=== PATIENT | male | born 1950 | race Caucasian/White ===

== ENCOUNTER 2017-07-19 02:16 | Observation (INO) | payer OTHER, MEDICARE ==
--- NOTE | 2017-07-19 02:21 | EDPHY ---
H & P HPI/ROS: HPI CHIEF COMPLAINT: Left foot swelling, redness, pain, blister. HISTORY OF PRESENT ILLNESS: This patient otherwise healthy 66-year-old male no history of diabetes, immunocompetent, presents emergency room with left foot swelling pain and redness. Started Tuesday. He noticed pain and redness to the dorsum of his left foot. His progressed over the past weekend. No fever. The redness is streak up his foot. He has left great toe has become swollen and red. There is a blister to the medial aspect of the left great toe. He is unsure something bit him. He states started while he was gardening in a closed shoe. No history of cellulitis or MRSA. Past Medical History: No significant medical history Past Surgical History: No significant surgical history Social History: Denies daily use drugs alcohol tobacco products. Family History: Noncontributory ROS REVIEW OF SYSTEMS: A comprehensive 10 point review of systems is otherwise negative aside from elements mentioned in the history of present illness. Exam Constitutional triage nursing summary reviewed, vital signs reviewed, awake/ alert. Eyes normal conjunctivae and sclera, EOMI, PERRLA. HENT normal inspection, atraumatic, moist mucus membranes, no epistaxis, neck supple/ no meningismus, no raccoon eyes. Respiratory clear to auscultation bilaterally, normal breath sounds, no respiratory distress, no wheezing. Cardiovascular rate normal, regular rhythm, no murmur, no edema, distal pulses normal. Gastrointestinal soft, non-tender, no rebound, no guarding, normal bowel sounds, no distension, no pulsatile mass. Genitourinary no CVA tenderness. Musculoskeletal left foot: Good DP, redness and erythema yellow tinged drainage , blister left medial aspect great toe, great toe swollen, no crepitus, no gas, warmth. no midline vertebral tenderness, full range of motion, no calf swelling , no tenderness of extremities, no meningismus, good pulses, neurovascularly intact. Skin See left foot description above Neurologic awake, alert and oriented x 3, AAOx3, moves all 4 extremities equally, motor intact, sensory intact, CN II-XII intact, normal cerebellar, normal vision, normal speech. Psychiatric normal mood/affect. Heme/Lymph/Immune no lymphadenopathy. Differential Diagnosis: Includes but is not limited to in a particular order left foot cellulitis, left foot MRSA infection, strep infection Medical Decision Making: Plan for this patient IV establishment blood cultures , IV vancomycin, inflammatory markers, CBC electrolytes, check x-ray left foot for rule out gas. Most likely will need to be admitted given extent of cellulitis. Re-evaluation: Left foot x-ray visualized by myself. No foreign body visualized. No gas. No osteomyelitis change. Updated patient given the extent of cellulitis was foot I feel that this patient be benefit from hospitalization IV antibiotics. Feel that he would fail outpatient management. Patient agrees for admission tonight and today for IV antibiotics. IV vancomycin as been ordered in the emergency room. Blood cultures pending. Blood work has been reviewed elevated CRP. No systemic white count. Spoke with Dr. Harris who agrees to admit this patient. Source: Patient Constitutional: Initial Vital Signs Temperature (C) 37 C 07/19/17 02:18 Heart Rate 71 07/19/17 02:18 Respiratory Rate 18 07/19/17 02:18 Blood Pressure 159/98 H 07/19/17 02:18 O2 Sat (%) 95 07/19/17 02:18 O2 Delivery Mode Room Air Allergies/Adverse Reactions: Sulfa (Sulfonamide Antibiotics) Allergy (Verified 07/19/17 02:18) Home Medications: Medication Instructions Recorded Ibuprofen [Motrin (*)] 200 mg PO BID PRN 07/19/17 Medical Decision Making - Data Points Laboratory Results: Laboratory Results 07/19/17 02:50 07/19/17 02:50 Medications Given: Acetaminophen (Tylenol) 650 mg PO Q4HRS PRN PRN Reason: Pain, Mild/Fever, Can Take PO Stop: 01/15/18 03:51 Last Admin: 07/19/17 10:12 Dose: 650 mg Diphenhydramine HCl (Benadryl Cream) 1 sadia TP QID PRN PRN Reason: Itching Stop: 01/15/18 18:06 Last Admin: 07/19/17 19:13 Dose: 1 sadia Vancomycin HCl 1.5 gm/ (Dextrose) 250 mls @ 166.667 mls/hr IV Q12H SLY Stop: 08/18/17 14:59 Last Admin: 07/19/17 15:29 Dose: 250 mls Discontinued Medications Sodium Chloride (Ns) 1,000 mls @ 0 mls/hr IV EDNOW ONE; Wide Open PRN Reason: Protocol Stop: 07/19/17 02:43 Last Admin: 07/19/17 03:13 Dose: 1,000 mls Vancomycin/Sodium Chloride (Vancomycin 1 Gm (Premix)) 250 mls @ 250 mls/hr IV EDNOW ONE PRN Reason: Protocol Stop: 07/19/17 03:42 Last Admin: 07/19/17 03:14 Dose: 250 mls Departure - Departure Disposition: [facility] Acute Clinical Impression: Cellulitis of left foot Condition: Fair
[2017-07-19] MEDS ORDERED: NS 1,000 ML IV ONE (02:42)
[2017-07-19] MEDS ORDERED: VANCOMYCIN HCL/NORMAL SALINE 250 ML IV ONE (02:43)
[2017-07-19 03:03] LABS: % IMMATURE GRANULYOCYTES 0.3 % (0.0-1.1); ABSOLUTE IMMATURE GRANULOCYTES 0.02 10^3/uL (0.00-0.10); ADD DIFF? NO; ADD MORPH? NO; ADD SCAN? NO; ATYPICAL LYMPHOCYTE FLAG 10 (0-99); FRAGMENT RBC FLAG 0 (0-99); HEMOGLOBIN 14.9 g/dL (13.7-17.5); LEFT SHIFT FLG 0 (0-99); LIPEMIA HEMOLYSIS FLAG 90 (0-99); MEAN CELL HEMOGLOBIN 33.1 pg (27.9-34.1); MEAN CELL HEMOGLOBIN CONCENTR. 33.9 g/dL (32.4-36.7); MEAN CELL VOLUME 97.8 fL (81.5-99.8); MEAN PLATELET VOLUME 10.9 fL (8.7-11.7); PLATELET CLUMPS FLAG 10 (0-99); PLATELET COUNT 192 10^3/uL (150-400); RED CELL DISTRIBUTION WIDTH 13.3 % (11.5-15.2)
[2017-07-19 03:13] LABS: INR 0.95 (0.83-1.16); PROTIME(PATIENT) 12.6 SEC (12.0-15.0)
[2017-07-19 03:14] LABS: APTT 30.8 SEC (23.0-38.0)
[2017-07-19 03:31] LABS: ANION GAP 14 mEq/L (8-16); C-REACTIVE PROTEIN 16.2 mg/L (<10.0); CALCIUM 10.1 mg/dL (8.5-10.4); CARBON DIOXIDE 23 mEq/l (22-31); CHLORIDE 105 mEq/L (97-110); CREATININE 0.8 mg/dL (0.7-1.3); GLOMERULAR FILTRATION RATE > 60; GLUCOSE 98 mg/dL (70-100); SODIUM 142 mEq/L (134-144)
[2017-07-19 03:39] LABS: SEDIMENTATION RATE 11 MM/HR (0-20)
[2017-07-19] MEDS ORDERED: ONDANSETRON 4 MG/2 ML VIAL IVP PRN (03:52)
[2017-07-19] MEDS ORDERED: oxyCODONE IR 5 MG TAB PO PRN (03:52)
[2017-07-19] MEDS ORDERED: ONDANSETRON DISINTEGRATING 4 MG TAB PO PRN (03:52)
--- NOTE | 2017-07-19 03:58 | PDGENHP ---
History and Physical - Chief Complaint Foot redness - History of Present Illness 66 yo M w/ no PMHx presents with foot redness. He noticed a spire bite 3 days prior to presentation. Over the course of the last 48 he experienced progressive L foot redness, swelling, and warmth. He denies fever, chills, history of diabetes, or prior infections. History Information - Allergies/Home Medication List Allergies/Adverse Reactions: Sulfa (Sulfonamide Antibiotics) Allergy (Verified 07/19/17 02:18) Home Medications: NK [No Known Home Meds] 07/19/17 [Last Taken Unknown] I have personally reviewed and updated: family history, medical history - Past Medical History no pertinent PMH - Surgical History Additional surgical history: Retinal surgery - Family History Positive for: CAD - Social History Smoking Status: Former smoker Alcohol Use: None Drug Use: None Review of Systems ROS: 10pt was reviewed & negative except for what was stated in HPI & below Physical Exam Temp Pulse Resp BP Pulse Ox 37 C 71 18 159/98 H 95 07/19/17 02:18 07/19/17 02:18 07/19/17 02:18 07/19/17 02:18 07/19/17 02:18 Constitutional: no apparent distress, appears nourished Eyes: PERRL, EOMI Ears, Nose, Mouth, Throat: moist mucous membranes, no oral mucosal ulcers Cardiovascular: regular rate and rhythym, no murmur, rub, or gallop Respiratory: no respiratory distress, clear to auscultation Gastrointestinal: normoactive bowel sounds, soft, non-tender abdomen Skin: warm, erythema (L foot redness from 1st MTP extending proximally; +warmth , mild TTP.) Musculoskeletal: full muscle strength, no muscle tenderness Neurologic: AAOx3, CN II-XII Intact Psychiatric: interacting appropriately, not anxious Lab Data & Imaging Review 07/19/17 02:50 07/19/17 02:50 WBC 5.90 10^3/uL (3.80-9.50) 07/19/17 02:50 RBC 4.50 10^6/uL (4.40-6.38) 07/19/17 02:50 Hgb 14.9 g/dL (13.7-17.5) 07/19/17 02:50 Hct 44.0 % (40.0-51.0) 07/19/17 02:50 MCV 97.8 fL (81.5-99.8) 07/19/17 02:50 MCH 33.1 pg (27.9-34.1) 07/19/17 02:50 MCHC 33.9 g/dL (32.4-36.7) 07/19/17 02:50 RDW 13.3 % (11.5-15.2) 07/19/17 02:50 Plt Count 192 10^3/uL (150-400) 07/19/17 02:50 MPV 10.9 fL (8.7-11.7) 07/19/17 02:50 Neut % (Auto) 56.6 % (39.3-74.2) 07/19/17 02:50 Lymph % (Auto) 21.9 % (15.0-45.0) 07/19/17 02:50 [place] % (Auto) 13.1 % (4.5-13.0) H 07/19/17 02:50 Eos % (Auto) 7.1 % (0.6-7.6) 07/19/17 02:50 Baso % (Auto) 1.0 % (0.3-1.7) 07/19/17 02:50 Nucleat RBC Rel Count 0.0 % (0.0-0.2) 07/19/17 02:50 Absolute Neuts (auto) 3.34 10^3/uL (1.70-6.50) 07/19/17 02:50 Absolute Lymphs (auto) 1.29 10^3/uL (1.00-3.00) 07/19/17 02:50 Absolute Monos (auto) 0.77 10^3/uL (0.30-0.80) 07/19/17 02:50 Absolute Eos (auto) 0.42 10^3/uL (0.03-0.40) H 07/19/17 02:50 Absolute Basos (auto) 0.06 10^3/uL (0.02-0.10) 07/19/17 02:50 Absolute Nucleated RBC 0.00 10^3/uL (0-0.01) 07/19/17 02:50 Immature Gran % 0.3 % (0.0-1.1) 07/19/17 02:50 Immature Gran # 0.02 10^3/uL (0.00-0.10) 07/19/17 02:50 ESR 11 MM/HR (0-20) 07/19/17 02:50 PT 12.6 SEC (12.0-15.0) 07/19/17 02:50 INR 0.95 (0.83-1.16) 07/19/17 02:50 APTT 30.8 SEC (23.0-38.0) 07/19/17 02:50 VBG Lactic Acid 1.0 mmol/L (0.7-2.1) 07/19/17 02:50 Sodium 142 mEq/L (134-144) 07/19/17 02:50 Potassium 4.0 mEq/L (3.5-5.2) 07/19/17 02:50 Chloride 105 mEq/L (97-110) 07/19/17 02:50 Carbon Dioxide 23 mEq/l (22-31) 07/19/17 02:50 Anion Gap 14 mEq/L (8-16) 07/19/17 02:50 BUN 11 mg/dL (7-23) 07/19/17 02:50 Creatinine 0.8 mg/dL (0.7-1.3) 07/19/17 02:50 Estimated GFR > 60 07/19/17 02:50 Glucose 98 mg/dL (70-100) 07/19/17 02:50 Calcium 10.1 mg/dL (8.5-10.4) 07/19/17 02:50 C-Reactive Protein 16.2 mg/L (<10.0) H 07/19/17 02:50 Imaging Review: L foot XR without osseous abnormality. Assessment & Plan Assessment: 66 yo M w/ no PMHx presents with L foot cellulitis. Plan: 1. Left foot cellulitis - Originating from site of spider bite a few days prior to presentation. No systemic signs of infection and normal WBC. CRP mildly elevated but ESR WNL. XR unremarkable. - Vancomycin IV for now - Area of erythema marked for monitoring Diet - Regular Code - Full Ppx - Ambulate TID Dispo - Admit to observation, suspect will be able to discharge later today with oral abx
[2017-07-19] MEDS: ACETAMINOPHEN 325 MG TAB PO PRN ×2 (10:12→22:54)
[2017-07-19] MEDS ORDERED: IBUPROFEN 200 MG TAB PO PRN (15:10)
--- NOTE | 2017-07-19 15:13 | HOSPPROG ---
Hospitalist Progress Note Assessment/Plan: Assessment: 66-year-old male presents with acute cellulitis of the left lower extremity Plan: 1. Cellulitis. Left lower extremity, purulent, has not experienced clinical resolution as yet, evidenced by persistent erythema up to the margins drawn yesterday, small bullae forming it the base of the left great toe with pustulant drainage -patient warrants ongoing IV vancomycin as well as frequent reassessment -pain management as needed -does not require surgical debridement at this time -continue to monitor CBC and fever curve -x-ray demonstrating no evidence of maggie osteomyelitis the patient has no risk factors, but, if the area is slow to resolve tomorrow would recommend additional imaging with MRI Diet. Regular Prophylaxis. High risk patient, Lovenox 40 Code. Full Disposition. Anticipated discharge is 07/20, pending clinical resolution of above. Prolonged service, direct patient care in addition to the initial time spent during the history and physical by Dr. Harris, at bedside with patient, for 35 minutes, addressing the issues outlined above, from 12:00 p.m. to 12:35 p.m. Subjective: area remains somewhat painful Objective: Vital Signs Temp Pulse Resp BP Pulse Ox 37.0 C 73 16 139/84 H 94 07/19/17 11:14 07/19/17 11:14 07/19/17 11:14 07/19/17 11:14 07/19/17 11:14 07/18/17 07/19/17 07/20/17 05:59 05:59 05:59 Intake Total 1250 Balance 1250 PT 12.6 SEC (12.0-15.0) 07/19/17 02:50 INR 0.95 (0.83-1.16) 07/19/17 02:50 - Physical Exam Constitutional: no apparent distress Skin: other (significant erythema, small bullae, pustulence at L great toe and spreading proximally to demarcated margins) Musculoskeletal: other (full ROM L great toe and ankle) Neurologic: AAOx3, sensation intact bilaterally Psychiatric: interacting appropriately, not anxious, not encephalopathic, thought process linear ICD10 Worksheet Patient Problems: Problems Problem Status Onset Cellulitis of left foot Acute
--- NOTE | 2017-07-19 15:24 | ASMTCMCOM ---
CM Note CM Note Notes: Pt is a 66 y/o man admitted for left foot celluitis. CM met w/ pt for dispo planning. Pt reports that he will most likely d/c home without any needs, w/ supportive . Pt reports that he can drive himself home. CM available for any changes. Date Signed: 07/19/2017 03:23 PM Electronically Signed By:Yessenia Amezcua
[2017-07-19] MEDS: VANCOMYCIN 1.5 GM in D5W 250 ML IV SCH (15:29)
[2017-07-19] MEDS: DIPHENHYDRAMINE CREAM TP PRN (19:13)
[2017-07-20 05:11] LABS: ANION GAP 10 mEq/L (8-16); CALCIUM 9.6 mg/dL (8.5-10.4); CARBON DIOXIDE 27 mEq/l (22-31); CHLORIDE 103 mEq/L (97-110); CREATININE 0.9 mg/dL (0.7-1.3); GLOMERULAR FILTRATION RATE > 60; GLUCOSE 109 mg/dL (70-100); POTASSIUM 4.5 mEq/L (3.5-5.2); SODIUM 140 mEq/L (134-144)
[2017-07-20] MEDS: VANCOMYCIN 1.5 GM in D5W 250 ML IV SCH (05:12)
[2017-07-20 06:00] LABS: % IMMATURE GRANULYOCYTES 0.6 % (0.0-1.1); ABSOLUTE IMMATURE GRANULOCYTES 0.03 10^3/uL (0.00-0.10); ADD DIFF? NO; ADD MORPH? NO; ADD SCAN? NO; ATYPICAL LYMPHOCYTE FLAG 0 (0-99); FRAGMENT RBC FLAG 10 (0-99); HEMATOCRIT 43.5 % (40.0-51.0); HEMOGLOBIN 14.5 g/dL (13.7-17.5); LEFT SHIFT FLG 0 (0-99); LIPEMIA HEMOLYSIS FLAG 80 (0-99); MEAN CELL HEMOGLOBIN 32.9 pg (27.9-34.1); MEAN CELL HEMOGLOBIN CONCENTR. 33.3 g/dL (32.4-36.7); MEAN CELL VOLUME 98.6 fL (81.5-99.8); MEAN PLATELET VOLUME 11.1 fL (8.7-11.7); PLATELET CLUMPS FLAG 10 (0-99); PLATELET COUNT 193 10^3/uL (150-400); RED BLOOD CELL COUNT 4.41 10^6/uL (4.40-6.38); RED CELL DISTRIBUTION WIDTH 13.2 % (11.5-15.2)
[2017-07-20 07:35] VITALS: BP 138/81; RESP 18; TEMP 98.4
--- NOTE | 2017-07-20 08:40 | HOSPPROG ---
Hospitalist Progress Note Assessment/Plan: Patient is a 66-year-old male presents with acute cellulitis of the left lower extremity. He noticed a spider bite 3 days prior to presentation. * left lower extremity cellulitis On IV vancomycin X-ray shows no maggie osteomyelitis Redness has markedly improved He is anxious to leave this morning/ will give a dose of daptomycin and dc home he will dc on Augmentin and doxycycline Subjective: Patient is feeling much better/anxious to go. Objective: Vital Signs Temp Pulse Resp BP Pulse Ox 36.9 C 72 18 138/81 H 94 07/20/17 07:33 07/20/17 07:33 07/20/17 07:33 07/20/17 07:33 07/20/17 07:33 Laboratory Results 07/20/17 04:41 07/20/17 04:24 07/19/17 07/20/17 07/21/17 05:59 05:59 05:59 Intake Total 1250 300 Balance 1250 300 PT 12.6 SEC (12.0-15.0) 07/19/17 02:50 INR 0.95 (0.83-1.16) 07/19/17 02:50 - Physical Exam Constitutional: no apparent distress, appears nourished, not in pain Eyes: PERRL Ears, Nose, Mouth, Throat: hearing normal Respiratory: no respiratory distress Skin: warm, other (left big toe w redness/ blister on his big toe/ redness has decreased from previous marked edges) Musculoskeletal: full muscle strength Neurologic: AAOx3 Psychiatric: interacting appropriately, not anxious ICD10 Worksheet Patient Problems: Problems Problem Status Onset Cellulitis of left foot Acute
[2017-07-20] MEDS: DIPHENHYDRAMINE CREAM TP PRN (09:11)
[2017-07-20] MEDS ORDERED: DAPTOmycin 500 MG in NS 100 ML IV SCH (10:00)
[2017-07-20 11:27] VITALS: PULSE 61; O2SAT 96
--- NOTE | 2017-07-20 12:31 | GDS ---
[f rep st] DISCHARGE SUMMARY DISCHARGE DIAGNOSIS: Left lower extremity cellulitis, streptococcus-like in appearance. BRIEF HISTORY: The patient is a very nice 66-year-old gentleman, who to presented emergency room wit h foot redness. He thought it was secondary from a spider bite. He had progressive left foot toe sw elling and warmth. He was admitted and started on vancomycin. He had a foot x-ray performed, that s howed no significant osseous abnormality noted. Today he will get a dose of daptomycin, and then be discharged home on Augmentin and doxycycline. HOSPITAL COURSE: Left lower extremity cellulitis. He has an appointment with Dr. Cyrus Alberto at 11:00 a.m. for followup care. Recommending he stay on the antibiotics. He will get a presc ription for 7 days of doxycycline and 7 days of Augmentin. He is feeling markedly better. DISCHARGE CONDITION: Stable. Blood pressure is 138/81, O2 sats on room air 94%, respiratory rate is 18, pulse is 72, temperature is 36.9 Celsius. MEDICATIONS AT DISCHARGE: Please see the EMR. DISCHARGE INSTRUCTIONS: If his foot gets worsening redness, tenderness, more swelling, or if he deve lops any fever or chills, to return to the ER. /[id number]/MODL
--- NOTE | 2017-07-24 17:05 | ASDISCHSUM ---
Discharge Information Plan Status:Home with No Needs Medically Cleared to Leave:07/20/2017 Discharge Date:07/20/2017 12:12 PM CM D/C Disposition:Home, Routine, Self-Care ADT D/C Disposition:Home, Routine, Self-Care Projected Discharge Date:07/20/2017 12:00 AM Transportation at D/C:Self Discharge Delay Reason: Follow-Up Date:07/20/2017 12:00 AM Discharge Slot: Final Diagnosis: Placement Information Patient Contact Information Contact Name:OMIDISSACMARILY Relationship: Address:[address] [facility] Work Phone: [place] [facility] Alternate Phone: [facility]/Zip Code:[place] [address] Email: Financial Information Financial Class: Primary Plan Desc:MEDICARE OUTPATIENT Primary Plan Number:[id number] Secondary Plan Desc:[employer]/MDR SUPPLEMENT Secondary Plan Number:[id number] Assessment Information [facility] CM Progress Note CM Note CM Note Notes: Pt is a 66 y/o man admitted for left foot celluitis. CM met w/ pt for dispo planning. Pt reports that he will most likely d/c home without any needs, w/ supportive . Pt reports that he can drive himself home. CM available for any changes. Date Signed: 07/19/2017 03:23 PM Electronically Signed By:Yessenia Amezcua Intervention Information Intervention Type:SARAH-Signed Date of Service:07/19/2017 12:03 PM Patient Type:Observation Staff Member:Krystin Alanis Hours: Discipline: Severity: Comment:
== END 2017-07-20 12:12 | disposition home or self-care (01) ==
LOC: F3E 04:33
PROVIDERS: ADMIT Student in an Organized Health Care Education/Training Program; ATTEND Internal Medicine Pulmonary Disease
DX: L03.116 Cellulitis of left lower limb (principal); B95.5 Unspecified streptococcus as the cause of diseases classified elsewhere; Z88.2 Allergy status to sulfonamides
CPT/HCPCS: 73630; 96365; 99285; G0378; J0878; J3370

== ENCOUNTER → 2017-09-20 | Day surgery (SDC) | payer OTHER, MEDICARE ==
[~2017-09-20] MED LIST: BACITRACIN 50,000 UNITS/10 ML SYR IRR ONE; BUPIVACAINE 0.5% 30 ML SDV ONE; DEXAMETHASONE 4 MG/ML VIAL ONE; HYDROCODONE/APAP 5/325 TAB PO PRN; LIDOCAINE 1% 300 MG/30 ML SDV ONE; LR 1,000 ML IV ONE; MIDAZOLAM 2 MG/2 ML VIAL IVP ONE; NALOXONE HCL 0.4 MG/ML INJ IVP PRN; ONDANSETRON 4 MG/2 ML VIAL IVP PRN; OXYCODONE/APAP 5/325 TAB PO PRN; PROPOFOL/EMULSION 500 MG/50 ML BOTTLE IV ONE; ROPIVACAINE HCL 150 MG/30 ML INJ ONE; ROPIVACAINE HCL 20 MG/10 ML INJ EP ONE; fentaNYL 100 MCG/2 ML INJ IVP PRN; fentaNYL 100 MCG/2 ML INJ ONE; oxyCODONE IR 5 MG TAB PO PRN
[2017-09-20 11:31] VITALS: PULSE 69
--- NOTE | 2017-09-20 11:31 | PDANEPAE ---
ANE History of Present Illness 67 yo for bunionectomy ANE Past Medical History - Cardiovascular History Hx Hypertension: No Hx Arrhythmias: No Hx Chest Pain: No Hx Coronary Artery / Peripheral Vascular Disease: No Hx CHF / Valvular Disease: No Hx Palpitations: No - Pulmonary History Hx COPD: No Hx Asthma/Reactive Airway Disease: No Hx Recent Upper Respiratory Infection: No Hx Oxygen in Use at Home: No Hx Sleep Apnea: No Sleep Apnea Screening Result - Last Documented: Negative - Neurologic History Hx Cerebrovascular Accident: No Hx Seizures: No Hx Dementia: No - Endocrine History Hx Diabetes: No - Renal History Hx Renal Disorders: No - Liver History Hx Hepatic Disorders: No - Neurological & Psychiatric Hx Hx Neurological and Psychiatric Disorders: No - Cancer History Hx Cancer: No - Congenital Disorder History Hx Congenital Disorders: No - GI History Hx Gastrointestinal Disorders: No - Other Health History Other Health History: INTERMITTENT GOUT. LT FOOT CELLULITIS 07/18/2017 - Chronic Pain History Chronic Pain: Yes (RT BUNION) - Surgical History Prior Surgeries: BILL RETINAL AND CATARACT. BILL KNEE SCOPES ANE Review of Systems Review of Systems: - Exercise capacity METS (RN): 5 METS ANE Patient History - Allergies Allergies/Adverse Reactions: Sulfa (Sulfonamide Antibiotics) Allergy (Verified 07/19/17 02:18) - Home Medications Home medications: home medication list seen and reviewed Home Medications: Herbal Drugs DAILY 09/06/17 [Last Taken Unknown] - Anes Hx Anes Hx: no prior problems - Smoking Hx Smoking Status: Former smoker - Alcohol Use Alcohol Use: Heavy ANE Labs/Vital Signs - Vital Signs Height: 6 ft Weight: 90.718 kg ANE Physical Exam - Airway Mallampati Score: Class 2 Mouth exam: normal dental/mouth exam - Pulmonary Pulmonary: no respiratory distress - Cardiovascular Cardiovascular: regular rate and rhythym - ASA Status ASA Status: I, II ANE Anesthesia Plan Anesthesia Plan: MAC
--- NOTE | 2017-09-20 12:14 | PDHPUP ---
History & Physical Update H&P update statement: This history and physical update is based on an assessment of the patient which was completed after admission or registration (within 24 hours), but prior to the surgery/procedure.
--- NOTE | 2017-09-20 14:43 | POSTANESTH ---
Post Anesthetic Evaluation Cardiovascular Status: Normal, Stable Respiratory Status: Normal, Stable Level of Consciousness/Mental Status: Can Participate in Eval Pain Control: Adequate, Prn Tx Ordered Nausea/Vomiting Control: Adequate, Prn Tx Ordered Complications Possibly Related to Anesthesia: None Noted
--- NOTE | 2017-09-20 14:45 | POSTOPPROG ---
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
[2017-09-20 14:59] VITALS: TEMP 97.6
[2017-09-20 16:07] VITALS: BP 143/89; RESP 26; O2SAT 95
--- NOTE | 2017-09-20 19:45 | GOP ---
[f rep st] OPERATIVE REPORT DATE OF OPERATION: 09/20/2017 SURGEON: Anayeli Gonzalez DPM CERTIFIED FRAUD EXAMINER: Aiyana Cook ANESTHESIOLOGIST: Kellen Alonso MD PREOPERATIVE DIAGNOSIS: Painful hallux rigidus with hallux valgus deformity and arthritis 1st metata rsophalangeal joint, right foot. POSTOPERATIVE DIAGNOSIS: Hallux rigidus with hallux valgus deformity with gout arthropathy, right fo ot. PROCEDURE PERFORMED: First metatarsophalangeal joint arthrodesis with plate and screw fixation, righ t foot. FINDINGS: DESCRIPTION OF PROCEDURE: The patient presented to the hospital approximately an hour and half prior to foot surgery after having been n.p.o. past midnight. The patient's preoperative history and phys ical and all lab studies were reviewed and there were no contraindications to the proposed procedure. The patient was informed that on the metabolic profile, the AST and ALT were high at 77. These lorena dies are reflective of liver function and thus further investigation will be warranted if these studi es continue to remain high. The patient reported that his foot joint was no more painful and the gou t episode he had last week has resolved. He had continued taking the colchicine until yesterday. The patient was taken to the OR room and placed on the OR table in a supine position where the approp riate anesthetic agents were administered. This was supplemented with a local block to the right omari t utilizing a total of 10 cc of 0.5% Naropin with 10 cc of 1% lidocaine plain. This was given to the right mid foot and in a Bright block fashion to the base of the 1st metatarsal. The right lower extre mity was then prepped and draped in the usual aseptic fashion and covered with a sterile stockinette. A sterile pneumatic ankle tourniquet was applied and padded well underneath with Webril. Utilizing elevation and overlying Esmarch bandage, the foot was exsanguinated and the tourniquet was inflated to a pressure of 225 mmHg. The foot was lowered to the orthopedic table. Attention was directed to the dorsal medial aspect of the 1st metatarsophalangeal joint where an appr oximate 5-6 cm curvilinear incision was made. This incision was made medial to the extensor hallucis longus tendon. The incision was deepened through the subcutaneous tissues to the level of the capsu lar tissues taking care to preserve the neurovascular structures. Any bleeders were clamped and caut erized as needed. A linear capsular incision was made and the capsular tissues were reflected off th e dorsal and medial aspects of the 1st metatarsal head, distal shaft, and base of the proximal phalan x. The hypertrophic bone to the dorsal and medial aspect of the head of the 1st metatarsal was resec shala utilizing a sagittal saw and placed on the back table. The hypertrophic bone to the base of the proximal phalanx was resected utilizing the rongeur. White chalky material presented within the join t with exuberant synovitic tissue which was excised and placed on the back table and sent for patholo gic evaluation. The articular surface to the 1st metatarsal head was very thin with several articula r defects along with a white chalky coating consistent with gouty arthritis. Similar findings were n oted to the base of the proximal phalanx along with subchondral cysts with tophi. The tophi was exci sed utilizing the curette. The 1st metatarsal head was then exposed and a guidewire was placed into the central aspect of the head of the 1st metatarsal in a mijdzg-py-hbmmrkbt fashion to serve as an a xis guide for the reamer provided by the [employer] system. The reamer was then placed over the guidewi re and the articular cartilage from the head of the 1st metatarsal was removed to the level of subcho ndral bone. The guidewire was removed and the surgical site was copiously irrigated with a sterile s dereck-bacitracin solution. The hypertrophic bone to the rim of the 1st metatarsal was resected with a rongeur. Attention was then directed to the base of the proximal phalanx where a guidewire was placed through the central aspect of the base of the phalanx to serve again as a guide wire. Placement of the pin w as checked with the C-arm. Utilizing the reamer provided by the [employer] system, the articular cartil age to the base of the proximal phalanx was resected to the level of subchondral bone. The guidewire was removed and the subchondral cyst was debrided utilizing the curette to healthy bone. The surgic al site was copiously irrigated with sterile saline-bacitracin solution. The fusion sites were then prepared by fenestrating the bone with a 2-0 drill bit and then an osteotome and mallet to both the b ase of the proximal phalanx and head of the 1st metatarsal. Ada bone graft was then placed on th e head of the 1st metatarsal and the base of the proximal phalanx was then held in a rectus position upon the head of the 1st metatarsal. The hallux was held in a rectus position and a standard right m etatarsophalangeal locking plate was placed upon the fusion site and temporarily fixated with olive p ins. The guidewire for the headless Arthrex screw was placed across the arthrodesis site in a medial distal to lateral proximal direction for temporary fixation. A C-arm was utilized to check alignmen t of the fusion site and placement of the plate which was optimal. The 2 distal arms of the plate we re somewhat elevated, thus bone was resected off the dorsal aspect base of the proximal phalanx where there was some ridging. A 2nd K-wire was placed across the fusion site in a proximal medial to dist al lateral direction. Utilizing standard technique with the headless Arthrex screw system, a 3.5 hea dless Arthrex screw was placed over the guidewire through the base of the proximal phalanx into the d istal 1st metatarsal. The K-wire was removed and the fusion site was flushed, stabilized, and in goo d alignment. It should be mentioned, prior to final placement of the screw across the head of the 1s t metatarsal, 1 of the olive pins to the plate was removed to allow compression. The 3.5 headless sc rew measured 30 mm in length. The plate was secured to the fusion site with the 2 olive pins. First locking screw across the plate was placed to the distal medial arm which measured 18 mm in length. The olive pins were removed and attention was directed to the compression hole of the plate, where a 20 mm nonlocking screw was placed eccentrically which held the plate securely and provided some compr ession to the fusion site. Attention was redirected to the distal lateral arm of the plate at the level of the proximal phalanx where a 16 mm 3.0 locking screw was placed. Attention was redirected to the most proximal hole of th e plate where an 18 mm 3.0 locking screw was placed across the plate. Attention was then directed to the hole just distal to the compression screw for the plate and a 3.0 18 mm locking screw was placed . Attention was directed to the last hole of the plate coursing over the base of the proximal phalan x where a nonlocking 22 mm 3.0 screw was placed. The surgical site was copiously irrigated with sterile saline-bacitracin solution. The fusion site a nd alignment were checked with the C-arm and alignment of the fusion site was optimal and the lengths of the screws were adequate. Any remaining bony prominences to the medial aspect of 1st metatarsal head were resected to a smooth surface utilizing the bone rasp. Surgical site was again copiously ir rigated with a sterile saline-bacitracin solution. Ada was placed along the lateral aspect of th e fusion site. The capsular tissues were reapproximated with 2-0 and 3-0 Vicryl. The tourniquet was released and there was immediate capillary refill to all digits and there was hemostasis. The subcu taneous tissues were reapproximated utilizing 4-0 Monocryl. The skin was reapproximated utilizing 4- 0 Prolene with interrupted horizontal mattress sutures. Additional 9 cc of 0.5% Naropin was given pr oximal to the surgical site. A mildly compressive dry sterile gauze dressing was applied with Xerofo rm, 4 x 4 gauze, Xuan Kerlix, and an Daquan wrap. A second Daquan wrap was applied so as to extend it up to below the knee. The patient tolerated the procedure and anesthesia well. Was transferred to the recovery room with v ital signs stable and vascular status intact to the right lower extremity. In the recovery room, he received postoperative home care instructions. The patient is permitted to bear weight but only to t he heel and is to wear the cast boot at all times when ambulating for protection. The patient is not to bear any weight on the forefoot and to utilize crutches or a walker for ambulation assist. The p atient was dispensed a cryo cuff and instructed on its usage. Prescriptions had been given for OxyCo ntin controlled release and Percocet to take as prescribed. However, the patient was instructed not to take the Percocet but was given another prescription with immediate-release OxyContin 5 mg. The p atient was instructed not to take any acetaminophen, Tylenol, due to the 2 high liver function studie s and potential risks. Reviewed with the patient postoperative prescriptions for the controlled-rele ase OxyContin and immediate-release OxyContin. Patient instructed to take 1 colchicine this evening and 2 tomorrow, 1 in the morning 1 in the afternoon, to prevent a gout episode. He was instructed to drink a lot of water and stay well hydrated. Recommend liver function studies in 1 month to see to see if the AST and ALT studies are still high. He was instructed not to drink any alcohol which can also precipitate a gout event. The instructions for narcotic home use were reviewed with his an d his daughter. The patient is to follow up in the office in 2 days but is to call the office felipe sidhu if any questions or problems should arise. The procedure went well without complications. /[id number]/MODL
== END | disposition home or self-care (01) ==
LOC: FSGY 10:27
PROVIDERS: ATTEND Podiatrist
PROC: 0SBM0ZX Excision of Right Metatarsal-Phalangeal Joint, Open Approach, Diagnostic (ICD-10-PCS; principal; 2017-09-20 12:00)
PROC: 0SGM04Z Fusion of Right Metatarsal-Phalangeal Joint with Internal Fixation Device, Open Approach (ICD-10-PCS; principal; 2017-09-20 12:00)
PROC: 0SGM07Z Fusion of Right Metatarsal-Phalangeal Joint with Autologous Tissue Substitute, Open Approach (ICD-10-PCS; principal; 2017-09-20 12:00)
DX: M20.21 Hallux rigidus, right foot (principal); M20.11 Hallux valgus (acquired), right foot; M1A.9XX1 Chronic gout, unspecified, with tophus (tophi); M19.071 Primary osteoarthritis, right ankle and foot; Z87.891 Personal history of nicotine dependence; Z88.2 Allergy status to sulfonamides
CPT/HCPCS: C1713; C1762; J0171; J1100; J2250; J2704; J2795; J3010

== ENCOUNTER → 2018-06-30 | Outpatient (CLI) | payer OTHER, MEDICARE | LOC: FIMAGING 08:10 | PROVIDERS: ATTEND Orthopaedic Surgery | DX: M17.11 Unilateral primary osteoarthritis, right knee (principal) ==

== ENCOUNTER 2018-07-26 08:15 | Inpatient (IN) | payer OTHER, MEDICARE ==
[2018-10-20] MEDS ORDERED: ROPIVACAINE 0.2% 80 MG, EPINEPHrine 0.2 MG, KETOROLAC TROMETHAMINE 30 MG in SYRINGE 0 ML IU ONE (06:00)
[2018-10-20] MEDS ORDERED: TRANEXAMIC ACID 3,000 MG in NS (SYRINGE) 50 ML IRR ONE (06:00)
--- NOTE | 2018-10-20 06:09 | PDHPUP ---
History & Physical Update H&P update statement: This history and physical update is based on an assessment of the patient which was completed after admission or registration (within 24 hours), but prior to the surgery/procedure. H&P update: H&P reviewed & patient examined, no change in patient's condition since H&P completed
[2018-10-20] MEDS ORDERED: ACETAMINOPHEN 325 MG TAB PO ONE (10:34)
[2018-10-20] MEDS ORDERED: ceFAZolin 2 GM/DEXTROSE 100 ML IV ONE (10:34)
[2018-10-20] MEDS ORDERED: DEXAMETHASONE 4 MG/ML VIAL IVP ONE (10:34)
[2018-10-20] MEDS ORDERED: FAMOTIDINE 20 MG TAB PO ONE (10:34)
[2018-10-20] MEDS ORDERED: LIDOCAINE 1% 2 ML INJ ID PRN (10:35)
[2018-10-20] MEDS ORDERED: LR 1,000 ML IV ONE (10:35)
[2018-10-20] MEDS ORDERED: TRANEXAMIC ACID 3,000 MG/50 ML BAG IRR ONE (10:55)
[2018-10-20] MEDS ORDERED: PROPOFOL/EMULSION 500 MG/50 ML BOTTLE IV ONE (10:59)
[2018-10-20] MEDS ORDERED: LIDOCAINE 2% 5 ML SDV ONE (11:23)
--- NOTE | 2018-10-20 11:27 | PDANEPAE ---
ANE History of Present Illness right TKA ANE Past Medical History - Cardiovascular History Hx Hypertension: No Hx Arrhythmias: No Hx Chest Pain: No Hx Coronary Artery / Peripheral Vascular Disease: No Hx CHF / Valvular Disease: No Hx Palpitations: No - Pulmonary History Hx COPD: No Hx Asthma/Reactive Airway Disease: No Hx Recent Upper Respiratory Infection: No Hx Oxygen in Use at Home: No Hx Sleep Apnea: No Sleep Apnea Screening Result - Last Documented: Negative - Neurologic History Hx Cerebrovascular Accident: No Hx Seizures: No Hx Dementia: No - Endocrine History Hx Diabetes: No - Renal History Hx Renal Disorders: No - Liver History Hx Hepatic Disorders: No - Neurological & Psychiatric Hx Hx Neurological and Psychiatric Disorders: No - Cancer History Hx Cancer: No Cancer History Comment: BASAL CELLS REMOVED - Congenital Disorder History Hx Congenital Disorders: No - GI History Hx Gastrointestinal Disorders: No - Other Health History Other Health History: INTERMITTENT GOUT. LT FOOT CELLULITIS 07/18/2017 - Chronic Pain History Chronic Pain: No - Surgical History Prior Surgeries: BUNIONECTOMY R W/TOE FUSION. BILL RETINAL AND CATARACT. BILL KNEE SCOPES ANE Review of Systems Review of Systems: - Exercise capacity METS (RN): 5 METS ANE Patient History - Allergies Allergies/Adverse Reactions: Sulfa (Sulfonamide Antibiotics) Allergy (Verified 09/26/18 10:41) Unknown - Home Medications Home medications: home medication list seen and reviewed Home Medications: Acetaminophen [Tylenol 325mg (*)] 325 mg PO DAILY PRN 06/13/18 [Last Taken 10/19] - Anes Hx Anes Hx: no prior problems - Smoking Hx Smoking Status: Former smoker - Family Anes Hx Family Hx Anesthesia Complications: NEG ANE Labs/Vital Signs - Vital Signs Height: 182.88 cm Weight: 95.254 kg ANE Physical Exam - Airway Neck exam: FROM Mallampati Score: Class 2 Mouth exam: normal dental/mouth exam - Pulmonary Pulmonary: no respiratory distress - Cardiovascular Cardiovascular: regular rate and rhythym - ASA Status ASA Status: II ANE Anesthesia Plan Anesthesia Plan: spinal Regional Anesthesia: single shot NB, adductor canal FNB
--- NOTE | 2018-10-20 12:00 | POSTANESTH ---
Post Anesthetic Evaluation Cardiovascular Status: Normal, Stable Respiratory Status: Normal, Stable Level of Consciousness/Mental Status: Can Participate in Eval, Alert and Oriented Pain Control: Adequate, Prn Tx Ordered Nausea/Vomiting Control: Adequate, Prn Tx Ordered Complications Possibly Related to Anesthesia: None Noted
[2018-10-20] MEDS ORDERED: ROPIVACAINE HCL 150 MG/30 ML INJ ONE (12:01)
[2018-10-20] MEDS ORDERED: BUPIVACAINE/DEXTROSE 7.5MG/ML 2 ML SPINAL AMP SP ONE (12:01)
[2018-10-20] MEDS ORDERED: MIDAZOLAM 2 MG/2 ML VIAL IVP ONE (12:04)
[2018-10-20] MEDS ORDERED: MIDAZOLAM 2 MG/2 ML VIAL ONE (12:04)
[2018-10-20] MEDS ORDERED: LR 500 ML IV PRN (12:50)
[2018-10-20] MEDS ORDERED: fentaNYL 100 MCG/2 ML INJ IVP PRN (12:50)
[2018-10-20] MEDS ORDERED: ONDANSETRON 4 MG/2 ML VIAL IVP PRN ×2 (12:50→13:42)
[2018-10-20] MEDS ORDERED: ALBUTEROL 3 ML DEYVIAL IH PRN (12:50)
[2018-10-20] MEDS ORDERED: NALOXONE HCL 0.4 MG/ML INJ IVP PRN (12:50)
[2018-10-20] MEDS ORDERED: oxyCODONE IR 5 MG TAB PO PRN (12:50)
[2018-10-20] MEDS ORDERED: HYDROCODONE/APAP 5/325 TAB PO PRN (12:50)
[2018-10-20] MEDS ORDERED: ACETAMINOPHEN 500 MG TAB PO PRN (12:50)
[2018-10-20] MEDS ORDERED: PROPOFOL 200 MG/20 ML VIAL ONE (12:59)
[2018-10-20] MEDS ORDERED: LACTULOSE 20 GM/30 ML UDCUP PO PRN (13:42)
[2018-10-20] MEDS ORDERED: PROMETHAZINE HCL 25 MG SUPPR PR PRN (13:42)
[2018-10-20] MEDS ORDERED: ONDANSETRON DISINTEGRATING 4 MG TAB PO PRN (13:42)
[2018-10-20] MEDS ORDERED: TEMAZEPAM 15 MG CAP PO PRN (13:42)
[2018-10-20] MEDS ORDERED: BISACODYL 10 MG SUPP PR PRN (13:42)
[2018-10-20] MEDS ORDERED: CYCLOBENZAPRINE 10 MG TAB PO PRN (13:42)
[2018-10-20] MEDS ORDERED: DIPHENOXYLATE/ATROPINE LOMOTIL 1 TAB PO PRN (13:42)
[2018-10-20] MEDS ORDERED: MAGNESIUM HYDROXIDE 30 ML UDCUP PO PRN (13:42)
[2018-10-20] MEDS ORDERED: POLYETHYLENE GLYCOL 3350 17 GM PKT PO PRN (13:42)
[2018-10-20] MEDS ORDERED: PROMETHAZINE HCL 25 MG/ML INJ IVP PRN (13:42)
[2018-10-20] MEDS ORDERED: diphenhydrAMINE 25 MG CAP PO PRN (13:42)
[2018-10-20] MEDS ORDERED: METOCLOPRAMIDE 10 MG/2 ML VIAL IVP PRN (13:42)
--- NOTE | 2018-10-20 13:42 | POSTOPPROG ---
Post Op Note Date of Operation: 10/20/18 Surgeon: Valentín Frazier Industrial Twisting Machine Operator: monie frazier PA-C Anesthesiologist: Dr. Giron Anesthesia: Spinal, Other (Specify) (adductor canal block) Pre-op Diagnosis: right knee OA Post-op Diagnosis: same Indication: right knee pain Procedure: r TKa robot assisted, sensor assisted Findings: severe knee OA Inf/Abcess present in the surg proc area at time of surgery?: No EBL: 50-100
[2018-10-20] MEDS ORDERED: LR 1,000 ML IV SCH (14:00)
--- NOTE | 2018-10-20 14:07 | PDMN ---
Medical Necessity Medical necessity: Pt meets IP criteria as of 10/20/2018 per PA; est los > 2 mn for BP monitoring and pain control s/p Right TKA.
[2018-10-20] MEDS: ACETAMINOPHEN 325 MG TAB PO SCH ×2 (16:54→22:46)
[2018-10-20] MEDS: oxyCODONE IR 5 MG TAB PO PRN (16:54)
[2018-10-20] MEDS: FAMOTIDINE 20 MG TAB PO SCH (20:00)
[2018-10-20] MEDS: ceFAZolin 2 GM/DEXTROSE 100 ML IV SCH (20:00)
[2018-10-20] MEDS: SENNOSIDES/DOCUSATE SODIUM TAB PO SCH (20:00)
[2018-10-20] MEDS: ASPIRIN 81 MG CHEWABLE TAB PO SCH (20:00)
[2018-10-21] MEDS: oxyCODONE IR 5 MG TAB PO PRN ×2 (03:21→08:52)
[2018-10-21] MEDS: ACETAMINOPHEN 325 MG TAB PO SCH (04:57)
[2018-10-21] MEDS: ceFAZolin 2 GM/DEXTROSE 100 ML IV SCH (04:58)
[2018-10-21 07:29] VITALS: BP 133/75
[2018-10-21] MEDS: ASPIRIN 81 MG CHEWABLE TAB PO SCH (08:52)
[2018-10-21] MEDS: SENNOSIDES/DOCUSATE SODIUM TAB PO SCH (08:52)
[2018-10-21] MEDS: FAMOTIDINE 20 MG TAB PO SCH (08:53)
--- NOTE | 2018-10-21 10:02 | SOAPPROG ---
SOAP Progress Note Assessment/Plan: Assessment: Patient is doing well POD 1 s/p R TKA Pain management: pain is well controlled on oral pain meds. VTE ppx: recommend aspirin 81 mg twice daily for 4 weeks, cont DARIEL and SCDs D/c planning:patient has done much better than anticipated. Patient is stable, BP stable, pain well controlled and patient is eager for discharge to home. May d/c to home today pending release from PT Plan: 10/21/18 10:01 10/21/18 10:02 Subjective: patient is doing well,denies SOB, chest pain and N/V Objective: Vital Signs Temp Pulse Resp BP Pulse Ox 36.5 C 56 L 14 133/75 H 97 10/21/18 07:28 10/21/18 07:28 10/21/18 07:28 10/21/18 07:28 10/21/18 07:28 Laboratory Results 10/21/18 04:48 10/20/18 10/21/18 10/22/18 05:59 05:59 05:59 Intake Total 3640 Output Total 2705 200 Balance 935 -200 RLE: incision dressing is clean and dry, NVI, +pf/df ICD10 Worksheet Patient Problems: Problems Problem Status Onset Primary localized osteoarthritis of right knee Acute Cellulitis of left foot Acute
--- NOTE | 2018-10-21 11:58 | GDS ---
ADMISSION DIAGNOSIS: Right knee osteoarthritis. DISCHARGE DIAGNOSIS: Right knee osteoarthritis. PROCEDURE: Right total knee arthroplasty, robotic assisted. VTE PROPHYLAXIS: Recommend aspirin 81 mg twice daily for 4 weeks. BRIEF DESCRIPTION OF HOSPITAL STAY: Patient was admitted for an elective joint arthroplasty. The pa clau tolerated the procedure well and has passed physical therapy. The patient was given appropriat e antibiotic prophylaxis and venous thromboembolism prophylaxis. The patient's pain was well control led on oral pain medication, patient was holding down food, and had urinated. Decision was made to d ischarge the patient. The patient was given post-operative prescriptions pre-operatively. PLAN: Follow up as scheduled in Dr. Luis's office, 11/13 at 10:15 a.m. Patient has done much b stefanie than anticipated. Blood pressure, while elevated, has gone back to baseline. Patient is eager for discharge. Okay to discharge to home today. /[id number]/MODL
--- NOTE | 2018-10-23 19:33 | GOP ---
DATE OF OPERATION: 10/20/2018 SURGEON: Ann Luis MD TALLOW REFINER: EDWARD Zaldivar ANESTHESIA: Spinal. PREOPERATIVE DIAGNOSIS: Right knee osteoarthritis. POSTOPERATIVE DIAGNOSIS: Right knee osteoarthritis. PROCEDURE PERFORMED: Right total knee arthroplasty with computer navigation, robotic assist. FINDINGS: ESTIMATED BLOOD LOSS: 30 cc. INDICATIONS: The patient is a 68-year-old gentleman with severe and progressive pain and deformity of the right knee unresponsive to conservative care. The risks and benefits of surgical intervention were explained in detail. DESCRIPTION OF PROCEDURE: The patient was brought to the operative room and placed on the table in the supine position. Spinal anesthesia was induced without difficulty. A pneumatic tourniquet was applied about the right proximal thigh, and the leg was prepped and draped in a sterile fashion. The leg gillette was applied. After exsanguination by elevation the tourniquet was inflated to 250 mmHg. Incision was made anterior medial from the tibial tuberosity to a point __ cm proximal to the superior pole of the patella. Medial parapatellar arthrotomy was carried out from the superior pole of the patella and posteriorly in line with the fibers of the Type II VMO. . The medial collateral ligament was elevated and the infrapatellar fat pad was resected. The patella was everted and the articular surface was excised. A 38 mm patellar button was placed. Attention was turned first to the distal aspect of the femur. After exposure of the femur, 2 half pins were placed for fixation of the femoral array. In a similar fashion, 2 pins were placed anteromedial on the tibia for fixation of the tibial array. External land marking and registration of the hip center was performed without difficulty. Internal femoral and tibial registration was carried out without difficulty and the femoral and tibial checkpoints were placed and verified for accuracy. Attention was turned to the femur. The foot print for the size 5 femoral component was cut with the saw using the [employer] robotic system and verified for accuracy against the CT based plan. In a similar fashion, the saw was used to cut the footprint for the size 6 tibial component using the [employer] system and verified for accuracy against the CT based plan. The tibial articular surface was excised without difficulty, followed by the intercondylar box cut. The knee was extended and the remnants of the medial and lateral meniscus were excised. The posterior capsule was injected with ropivacaine, epinephrine and Toradol. A size 6 tibial tray was positioned. Trial reduction was then carried out. There was excellent range of motion, alignment, and stability using the _9_ _ mm polyethylene. All trials were then removed. The joint was thoroughly irrigated and carefully dried. The pressfit components were implanted. The permanent 9 mm polyethylene was placed without difficulty. The tourniquet was deflated and all bleeders were coagulated. The wound was thoroughly irrigated and closed using interrupted sutures of 2-0 Vicryl for the joint capsule. The subcu was closed with 3-0 Vicryl and the skin with 4-0 Monocryl. Dermabond and Steri-Strips were applied followed by a compressive dressing. The patient was then moved from the operating room to the recovery room in good condition, having tolerated the procedure well. /[id number]/MODL MTDD
== END 2018-10-21 11:54 | disposition home or self-care (01) | DRG 470 ==
LOC: F3E 10-20 10:10 → EDSTATUS 10-20 12:00 → F3N 10-20 15:04
PROVIDERS: ADMIT Orthopaedic Surgery; ATTEND Orthopaedic Surgery
DX: M17.11 Unilateral primary osteoarthritis, right knee (principal); Z87.891 Personal history of nicotine dependence
CPT/HCPCS: 97116-GP; 97161-GP; G8978-GP-CI; G8979-GP-CI; G8980-GP-CI; J0171; J0690; J1100; J1885; J2250; J2704; J2795

== ENCOUNTER → 2018-09-27 | Outpatient (CLI) | payer OTHER, MEDICARE | LOC: FIMAGING 09:03 | PROVIDERS: ATTEND Orthopaedic Surgery | DX: M17.11 Unilateral primary osteoarthritis, right knee (principal) ==